=== PATIENT | female | born 1990 | race Caucasian/White ===

== ENCOUNTER 2019-08-03 18:10 | Emergency (ER) | payer OTHER ==
[~2019-08-03] VITALS: Ht 170.2 cm; Wt 68.9 kg
[2019-08-03] MEDS ORDERED: CLONAZEPAM0.5 MG (18:37)
[2019-08-03] MEDS ORDERED: SYNTHROID175 MCG (18:37)
== END 2019-08-03 20:48 | disposition home or self-care (01) ==
LOC: ER 18:10
DX: M94.0 Chondrocostal junction syndrome [Tietze] (principal)

== ENCOUNTER → 2019-09-08 18:09 | Outpatient (CLI) | payer OTHER ==
[~2019-09-08 18:09] MED LIST: CLONAZEPAM0.5 MG; SYNTHROID175 MCG
== END | disposition home or self-care (01) ==
LOC: LAB 18:09
DX: J11.1 Influenza due to unidentified influenza virus with other respiratory manifestations (principal)